=== PATIENT | male | born 1955 | race Caucasian/White ===

== ENCOUNTER → 2017-12-27 | Outpatient (CLI) | payer OTHER ==
[~2017-12-27] MED LIST: ACTOS; ADV100/50 INH; ADV500/50 INH; ALL300 PO; ASCO-201 PO; ASCO-599 PO; ATOR10TA24 PO; BACDS PO; CALC500T42 PO; CALC500T76 PO; CELE-1 PO; CELE100C79 PO; CHOL500026 PO; COUMADIN PO; DULERAPT INH; FUR20 PO; HCTZ25 PO; HYD2 PO; HYDR2TAB74 PO; LEVA0.635 INH; LOR5 PO; LOR7.5/325 PO; METF-1 PO; METR45GE4 TP; MOMR; MON10 PO; MULT1CAP59 PO; OMEP40CA48 PO; ONDA4TAB PO; OXY10 PO; OXYC-717 PO; OXYC-865 PO; OXYGEN INH; PEN400 PO; PER PO; PIOG45TA18 PO; PIR14R INH; RIVA20TA PO; SULF-198 PO; TIO18R INH; VITA15CR2 TP; WAR1 PO; WARF10TA29 PO; ZINC30TA5 PO; [UNRECOGNIZED DRUG - CODE] PO; [UNRECOGNIZED DRUG - CODE] PO; [UNRECOGNIZED DRUG - CODE] PO; [UNRECOGNIZED DRUG - CODE] PO; [UNRECOGNIZED DRUG - CODE] PO; [UNRECOGNIZED DRUG - OTHER] TP
--- NOTE | 2017-12-27 18:05 | RADIOLOGY IMAGING REPORT ---
FACILITY: [facility] - [place] PATIENT NAME: Laura Ruth : 1955 MR: [id number] V: [id number] EXAM DATE: ORDERING PHYSICIAN: LAURA MANJARREZ TECHNOLOGIST: Location: [facility] [place] Patient: Laura Ruth : 1955 Visit/Account:[id number] Date of Sevice: 12/27/2017 LUMBAR SPINE 2 OR 3 VIEW HISTORY: Lower back pain COMPARISON: CT examination July 2014 FINDINGS: Similar mild to moderate multilevel degenerative spondylotic changes throughout the lumbar spine with mild intervertebral disc space narrowing and anterior osteophytic change. Likely a bridging anterior osteophyte at the level of L3-L4. Severe osteoarthritic change appears to be progressive at the leve l of L5-S1 with complete loss of the intervertebral disc space, osteophytic change and bony remodelin g of the superior aspect of the S1 vertebra. There is 1.4 cm anterolisthesis of L5 on S1. The bilater al pars defect is once again noted. IMPRESSION: Mild to moderate multilevel spondylotic changes with progressive, severe osteoarthritic change at the level of L5-S1. Bilateral pars interarticularis defect at L5 with subsequent grade 2 anterolisthesis of L5-S1. Report Dictated By: Chalino Rasmussen MD at 12/27/2017 5:58 PM Report E-Signed By: Chalino Rasmussen MD at 12/27/2017 6:01 PM WSN:[id number]
== END ==
LOC: RAD 15:57
PROVIDERS: ATTEND Family Medicine
DX: M47.897 Other spondylosis, lumbosacral region (principal)
CPT/HCPCS: 72100

== ENCOUNTER → 2017-12-27 | Outpatient (CLI) | payer OTHER ==
--- NOTE | 2017-12-27 16:57 | RADIOLOGY IMAGING REPORT ---
FACILITY: [facility] - [place] PATIENT NAME: Tony Ruth : 1955 MR: [id number] V: [id number] EXAM DATE: ORDERING PHYSICIAN: BISHOP FRANCIS TECHNOLOGIST: Location: [facility] - [place] Patient: Tony Ruth : 1955 Visit/Account:[id number] Date of Sevice: 12/27/2017 ABDOMEN PELVIS ESWL CYSTO W/O Provided history: History of kidney stones. Additional pertinent history: none TECHNIQUE: Spiral scan was obtained from the lower chest through the symphysis without intravenous co ntrast. Source images were reformatted in the coronal and sagittal planes. Additional series performed today: none One of the following dose optimization techniques was utilized in the performance of this exam: Autom ated exposure control; adjustment of the mA and/or kV according to the patient's size; or use of an i terative reconstruction technique. Specific details can be referenced in the facility's radiology CT exam operational policy. COMPARISON STUDIES: CT 07/27/14 FINDINGS: Lower chest: Stable subpleural micronodules. Liver/biliary: Negative Pancreas: Stable 9 mm fatty nodule of the tail the pancreas, benign. Spleen: Negative Adrenal glands: Negative Kidneys / ureters / bladder / genitourinary / retroperitoneum: There are no medullary or collecting s ystem stones. There may be a tiny cortical calcification posterior upper pole right kidney, not sign ificant. No obvious cortical masses. No hydronephrosis. No stones in the course of the ureters. B ladder is mostly decompressed. Prostate is normal other than minor central calcification. Bowel / peritoneum / mesenteries: Mild diverticulosis of the lower colon without diverticulitis. No bowel dilation. Vessels: negative Lymph nodes: negative Body wall: Small symmetric fat-containing indirect inguinal hernia, unchanged from prior. No bowel h erniation. Bones: Bilateral L5 pars defects with 10 mm lytic spondylolisthesis L5-S1 is little changed from prio r. Chronic degenerative anterior wedging at T9 is little changed. Extensive geographic sclerosis of the femoral heads is degenerative and little changed. IMPRESSION: 1. There are no stones in either kidney or in the course of either ureter. No hydronephrosis. 2. Stable chronic findings are discussed above including grade 1-2 lytic spondylolisthesis L5-S1. 3. Bibasilar micronodules of the lung bases are stable and benign. Report Dictated By: Selvin Campos MD at 12/27/2017 4:47 PM Report E-Signed By: Selvin Campos MD at 12/27/2017 4:54 PM WSN:[id number]
== END ==
LOC: CT 02:28
PROVIDERS: ATTEND Urology
DX: R91.8 Other nonspecific abnormal finding of lung field (principal); K86.89 Other specified diseases of pancreas; K57.30 Diverticulosis of large intestine without perforation or abscess without bleeding
CPT/HCPCS: 74176

== ENCOUNTER 2019-01-19 00:28 | Day surgery (SDC) | payer OTHER ==
[~2019-01-19] VITALS: Ht 170.2 cm; Wt 123.4 kg
[2019-01-19] MEDS ORDERED: PROPOFOL EMUL(*) 10MG/ML 20 ML 40 ML ONE (07:10)
[2019-01-19] MEDS ORDERED: LIDOCAINE/SOD BICARB 8.4% SYR ID ONE (07:20)
[2019-01-19] MEDS ORDERED: NORMOSOL R SOLN(*) 1000 ML BAG 1,000 ML IV PRN (07:20)
[2019-01-19] MEDS ORDERED: PROPOFOL EMUL(*) 10MG/ML 20 ML 20 ML ONE (07:22)
[2019-01-19 07:26] VITALS: BP 127/72
[2019-01-19 08:31] VITALS: BP 109/89
[2019-01-19 08:45] VITALS: BP 106/73
[2019-01-19 09:00] VITALS: BP 110/69
[2019-01-19 09:15] VITALS: BP_SYST 107; BP_SYST 121; BP_DIAS 64; BP_DIAS 72
[2019-01-19 09:20] VITALS: BP 118/84
== END 2019-01-19 09:38 | disposition home or self-care (01) ==
LOC: OR 00:28
PROVIDERS: ATTEND Family Medicine
DX: K57.30 Diverticulosis of large intestine without perforation or abscess without bleeding (principal); K64.4 Residual hemorrhoidal skin tags; K92.1 Melena; E11.9 Type 2 diabetes mellitus without complications
CPT/HCPCS: 00811; 36416; 45378; 82948; J2704

== ENCOUNTER → 2019-04-26 | Outpatient (CLI) | payer OTHER ==
--- NOTE | 2019-04-26 13:51 | RADIOLOGY IMAGING REPORT ---
FACILITY: [facility] PATIENT NAME: Tony Ruth : 1955 MR: [id number] V: [id number] EXAM DATE: ORDERING PHYSICIAN: BISHOP FRANCIS TECHNOLOGIST: Location: [facility] Patient: Tony Ruth : 1955 Visit/Account:[id number] Date of Sevice: 04/26/2019 CT ABDOMEN PELVIS W/O CON HISTORY: Kidney stones TECHNIQUE: CT abdomen and pelvis without intravenous contrast. Contiguous axial images of the abdom en and pelvis was performed from the lung bases to the symphysis pubis. One of the following dose optimization techniques was utilized in the performance of this exam: Autom ated exposure control; adjustment of the mA and/or kV according to the patient's size; or use of an i terative reconstruction technique. Specific details can be referenced in the facility's radiology C T exam operational policy. CONTRAST: None. COMPARISON: CT scan 12/27/2017 FINDINGS: Visualized lung bases: Negative. Hepatobiliary: Negative. Spleen: Negative. Adrenals: Negative. Kidneys/: There are no visible radiopaque renal or ureteral stones. Bladder is unremarkable. Pancreas: Negative. GI: There is mild diverticulosis. Vessels/spaces/nodes: Atherosclerotic calcifications noted. Bones/soft tissues: Significant degenerative changes are noted the spine. There is bilateral L5 spo ndylolysis with 8 mm of anterolisthesis of L5 with respect S1. Anterior flowing osteophytes suggesti ng diffuse idiopathic skeletal hyperostosis. IMPRESSION: 1. No visualized radiopaque renal or ureteral stones. 2. Other chronic findings described above. Report Dictated By: Abner Sage MD at 04/26/2019 1:39 PM Report E-Signed By: Abner Sage MD at 04/26/2019 1:45 PM WSN:[id number]
== END ==
LOC: CT 00:32
PROVIDERS: ATTEND Urology
DX: N20.0 Calculus of kidney (principal)
CPT/HCPCS: 74176